=== PATIENT | female | born 1955 | race Caucasian/White ===

== ENCOUNTER → 2017-12-07 | Outpatient (CLI) | payer OTHER ==
--- NOTE | 2017-12-07 12:24 | RAD ---
Left knee, 2 views, 12/07/2017: History: Disability determination, back and knee pain There is considerable narrowing of the medial compartment of the left knee joint with moderate marginal spurring. There is moderate degenerative change at the patellofemoral articulation. No fracture or dislocation is identified. No significant joint effusion is seen. IMPRESSION: 1. Moderately severe degenerative change at the left knee with dominant involvement of the medial compartment. 2. No acute bony abnormality is detected.
--- NOTE | 2017-12-07 12:47 | RAD ---
Lumbar spine, 3 views, 12/07/2017: History: Low back pain The lumbar vertebral heights are well-maintained. The intervertebral disc spaces are not significantly narrowed. There is extensive spurring in the upper lumbar spine with bridging osteophytes. There is also moderate spurring and bridging osteophytes in the visualized lower thoracic spine. There are mild marginal spurs in the mid and lower lumbar spine. There are mild degenerative changes involving the facet joints bilaterally, particularly in the lower lumbar spine. Aortic calcific plaquing is present. IMPRESSION: 1. Mild to moderate scattered degenerative changes as described above. 2. No acute bony abnormality is detected.
== END | disposition home or self-care (01) ==
LOC: DXRAD 10:06
PROVIDERS: ATTEND Neuromusculoskeletal Medicine, Sports Medicine
DX: Z02.71 Encounter for disability determination (principal); M17.12 Unilateral primary osteoarthritis, left knee; M47.896 Other spondylosis, lumbar region; M25.78 Osteophyte, vertebrae
CPT/HCPCS: 72100; 73560